=== PATIENT | male | born 1940 | race Caucasian/White ===

== ENCOUNTER 2018-01-04 00:28 | Emergency (ER) | payer MEDICARE, BC, SELFPAY ==
[2018-01-04 00:37] VITALS: BP 147/74; PULSE 50; RESP 16; TEMP 36.3; O2SAT 97; BMI 31.3
[2018-01-04 01:05] VITALS: BP 125/65
--- NOTE | 2018-01-04 01:05 | ED.EPISTAXIS ---
HPI - Epistaxis General Chief complaint: Nasal Problem Stated complaint: NOSEBLEED, ON BLOOD THINNERS Time Seen by Provider: 01/04/18 00:35 Source: patient and family Mode of arrival: ambulatory Limitations: no limitations History of Present Illness HPI Narrative: 77-year-old male with history of essential thrombocytopenia and stroke, on Plavix and aspirin, presents with spontaneous nose bleed x1 hour. He denies any injury, picking his nose or recent illness. He states he bled a fair amount at home but denies any chest pain, shortness of breath, dizziness or lightheadedness. His last nosebleed was over 20 years ago. MD complaint: epistaxis Location: left nostril Onset (ago): minute(s) Duration: constant Context: aspirin use Treatment prior to arrival: nose pinching, head leaned forward, stuffed nose with tissue and nasal clamp Related Data Home Medications Medication Instructions Recorded Confirmed clopidogrel [Plavix] 75 mg PO QDAY #0 tab 04/19/13 ezetimibe [Zetia] 10 mg PO QDAY #0 tab 04/19/13 fenofibrate nanocrystallized 145 mg PO HS #0 tab 04/19/13 [Tricor] ranitidine HCl [Zantac] 150 mg PO BID #0 tab 04/19/13 GLUCOSAMINE/CHONDROITIN SULF A 1 cap PO Q DAY #0 04/20/16 [COQ10] Q DAY #0 04/20/16 folic acid-vit B6-vit B12 [Folbic] 1 tab PO QDAY #0 tab 04/20/16 hydroxyurea [Hydrea] 500 mg PO BID #0 04/20/16 metoprolol tartrate 25 mg PO BID #0 04/20/16 nitroglycerin [Nitrostat] 0.4 mg SUBLINGUAL PRN #0 04/20/16 simvastatin 10 mg PO QDAY #0 04/20/16 triamterene-hydrochlorothiazid 1 tab PO Q DAY #0 04/20/16 icosapent ethyl [Vascepa] 1 gm PO QDAY #0 01/13/17 [zetia] #0 04/08/17 metronidazole [MetroCream] 1 kathy TOPICAL #0 04/08/17 sertraline [Zoloft] 50 mg PO QDAY #0 04/08/17 Allergies Allergy/AdvReac Type Severity Reaction Status Date / Time No Known Drug Allergies Allergy Verified 01/04/18 00:37 Review of Systems Review of Systems All systems reviewed & are unremarkable except as noted in HPI and below Constitutional Denies chills, Denies fever(s), Denies lethargy and Denies weakness Eyes Denies change in vision, Denies eye discharge, Denies irritation and Denies loss of vision ENT Ears, Nose, Mouth, and Throat: Denies change in voice, Reports epistaxis, Denies neck pain and Denies sore throat Cardiovascular Denies chest pain, Denies irregular heart rhythm, Denies lightheadedness, Denies palpitations, Denies dyspnea, Denies dyspnea on exertion and Denies orthopnea Respiratory Denies cough, Denies dyspnea, Denies dyspnea on exertion and Denies wheezing Gastrointestinal Gastrointestinal: Denies abdominal pain, Denies change in bowel habits, Denies diarrhea, Denies nausea and Denies vomiting Genitourinary Denies hematuria, Denies flank pain, Denies urinary incontinence and Denies urinary urgency Musculoskeletal Denies neck pain Integumentary/Breasts Denies pruritus, Denies erythema, Denies rash and Denies wounds Neurologic Denies confusion, Denies loss of vision and Denies weakness Psychiatric Denies anxiety, Denies confusion, Denies depression, Denies homicidal ideation and Denies suicidal ideation Endocrine Denies palpitations Hematologic/Lymphatic Denies easy bruising Allergic/Immunologic Denies wheezing PFSH Social History Smoking Status: Never smoker Exam Narrative Exam Narrative: 77M presents with active bleeding from L nostril and nose clamp in place Initial Vital Signs Initial Vital Signs: Vital Signs Temperature 97.3 F L 01/04/18 00:37 Pulse Rate 50 L 01/04/18 00:37 Respiratory Rate 16 01/04/18 00:37 Blood Pressure 147/74 H 01/04/18 00:37 Pulse Oximetry 97 01/04/18 00:37 Const General: cooperative and well developed Nutritional Appearance: well nourished Orientation: alert, awake, oriented x3 and not confused [facility] Head: normocephalic and atraumatic Ears: external ears normal and TM's normal bilaterally Nose: epistaxis (L nostril, bright red with large clot) Face and sinus: sinuses nontender, face symmetric, no sinus tenderness and No dry mucous membranes Mouth: oral mucosae normal and moist mucous membranes Teeth and gingiva: dentition normal Throat: tonsils normal and uvula midline Eyes General: appearance normal, both eyes and all related structures Eyelids: eyelids normal Conjunctivae: conjunctivae normal Sclera: sclerae normal Pupils: PERRL EOM: EOM intact bilaterally Resp Effort & Inspection: normal respiratory effort, able to speak in complete sentences, no respiratory distress and no use of accessory muscles Auscultation: clear to auscultation bilaterally, no rales, no rhonchi and no wheezes GI Inspection: non-distended Palpation: soft, no hepatosplenomegaly, No guarding, No pulsatile mass and No tender Auscultation: normal bowel sounds Back/Spine/Pelvis Back: No CVA tenderness Cervical Spine: cervical ROM normal and No pain with cervical ROM Thoracic/Lumbar Spine: thoracic and lumbar spine normal to inspection Neuro General: alert, oriented x3, gait normal and no focal motor deficits Speech: speech normal Procedures Epistaxis Control Time Out Performed: No Nostril: left Nose Prepped With: oxymetazoline Direct Inspection: yes Clots Removed by: blowing nose and suction Cautery Used: silver nitrate Device Inserted: other (Two rounds of Afrin with cotton ball and pressure for 15 min resulted in a near complete resolution of bleeding. Cautery seems to be holding. Third and final 15 min time frame with a pledget soaked in T aches a.) Course Orders Ordered: ED Orders 01/04/18 00:40 Complete Blood Count AUTO DIFF Stat Reevaluation(s) Reevaluation #1: After above-stated epistaxis control measures patient bleeding is under control. He has had extensive bedside discharge instructions and he and understand what to watch for that would prompt a return and verbalized their understanding. I did ask him to delay his travel plans for 24 hr to be sure he can gain appropriate rest in the sure no recurrence of symptoms happens Vital Signs - 8 hr 01/04/18 00:37 01/04/18 01:05 Temperature 97.3 F L Pulse Rate 50 L Respiratory Rate 16 Blood Pressure 147/74 H Blood Pressure [Left Arm] 125/65 H Pulse Oximetry 97 MDM - Epistaxis Lab Data Result diagrams: 01/04/18 00:40 Lab Results 01/04/18 Range/Units 00:40 WBC 10.4 (4.5-11.0) X10^3/uL RBC 3.83 L (4.5-5.9) X10^6/uL Hgb 14.7 (13.5-17.5) g/dL Hct 41.8 (41-53) % MCV 109.0 H (80-100) fL MCH 38.4 H (26-34) PG MCHC 35.3 (30-36) % RDW 13.3 (11.6-14.8) % Plt Count 228 (150-400) X10^3/uL Neut % (Auto) 65.9 (50-75) % Lymph % (Auto) 24.4 L (25-40) % [place] % (Auto) 8.2 (3-14) % Eos % (Auto) 1.0 L (2-4) % Baso % (Auto) 0.5 (0-2) % Neut # (Auto) 6800 H (4732-6869) /uL Discharge Plan Departure Patient Disposition: Home, Self-Care Clinical Impression: Epistaxis Instructions: DI for Nosebleed Activity Restrictions/Additional Instructions: *You have been diagnosed with [ epistaxis ] *What to do: *Continue take medications as directed *Do not blow your nose, or touch your nose for 24 hours. If bleeding begins again put a cotton ball in your nostril and squirt some Afrin in, apply the nose clamp and wait 15 minutes. If after that time frame the bleeding continues, repeat the process. If bleeding continues after 30 minutes please return to the Emergency Department *Return to ER immediately if you should have severe bleeding or any new, worsening or concerning symptoms Prescriptions: No Action clopidogrel [Plavix] 75 MG tablet 75 mg PO QDAY Qty: 0 RF: 0 ranitidine HCl [Zantac] 150 MG tablet 150 mg PO BID Qty: 0 RF: 0 ezetimibe [Zetia] 10 MG tablet 10 mg PO QDAY Qty: 0 RF: 0 fenofibrate nanocrystallized [Tricor] 145 MG tablet 145 mg PO HS Qty: 0 RF: 0 [COQ10] Q DAY Qty: 0 RF: 0 GLUCOSAMINE/CHONDROITIN SULF A 1 cap PO Q DAY Qty: 0 RF: 0 hydroxyurea [Hydrea] 500 MG capsule 500 mg PO BID Qty: 0 RF: 0 metoprolol tartrate 25 MG tablet 25 mg PO BID Qty: 0 RF: 0 simvastatin 10 MG tablet 10 mg PO QDAY Qty: 0 RF: 0 nitroglycerin [Nitrostat] 0.4 MG tablet, sublingual 0.4 mg Sublingual PRNQty: 0 RF: 0 triamterene-hydrochlorothiazid 37.5 MG/25 MG tablet 1 tab PO Q DAY Qty: 0 RF: 0 folic acid-vit B6-vit B12 [Folbic] 1 EACH tablet 1 tab PO QDAY Qty: 0 RF: 0 icosapent ethyl [Vascepa] 1 GM capsule 1 gm PO QDAY Qty: 0 RF: 0 metronidazole [MetroCream] 0.75 % cream 1 kathy Topical Qty: 0 RF: 0 sertraline [Zoloft] 50 MG tablet 50 mg PO QDAY Qty: 0 RF: 0 [zetia] Qty: 0 RF: 0 Referrals: Josh Zaragoza MD [Physician] -
[2018-01-04 01:15] LABS: Add Manual Diff / Slide Review NO; Basophils Percent Auto 0.5 % (0-2); Hematocrit 41.8 % (41-53); Hemoglobin 14.7 g/dL (13.5-17.5); Lymphocytes Percent Auto 24.4 % (25-40); Mean Corpuscular HGB Conc 35.3 % (30-36); Mean Corpuscular Hemoglobin 38.4 PG (26-34); Monocytes Percent Auto 8.2 % (3-14); Neutrophils Absolute Auto 6800 /uL (3000-5900); Neutrophils Percent Auto 65.9 % (50-75); Platelet Count 228 X10^3/uL (150-400); Red Blood Cell Count 3.83 X10^6/uL (4.5-5.9); Red Cell Distribution Width 13.3 % (11.6-14.8); White Blood Cell Count 10.4 X10^3/uL (4.5-11.0)
[2018-01-04 02:00] VITALS: BP 120/59; PULSE 46
== END 2018-01-04 02:30 | disposition home or self-care (01) ==
PROVIDERS: Emergency Provider Emergency Medicine; Family Provider Internal Medicine; PCP Internal Medicine
DX: R04.0 Epistaxis (principal)
CPT/HCPCS: 30901; 36591; 85025; 99282; 99283

== ENCOUNTER → 2018-03-01 15:34 | Outpatient (CLI) | payer MEDICARE, BC, SELFPAY ==
[2017-11-29 14:00] VITALS: TEMP 36.2
[2018-03-01 15:55] LABS: Add Manual Diff / Slide Review NO; Basophils Percent Auto 0.5 % (0-2); Eosinophils Percent Auto 0.7 % (2-4); Hematocrit 40.5 % (41-53); Hemoglobin 14.5 g/dL (13.5-17.5); Mean Corpuscular HGB Conc 35.9 % (30-36); Mean Corpuscular Hemoglobin 38.4 PG (26-34); Monocytes Percent Auto 6.6 % (3-14); Neutrophils Absolute Auto 7300 /uL (3000-5900); Neutrophils Percent Auto 75.2 % (50-75); Platelet Count 234 X10^3/uL (150-400); Red Blood Cell Count 3.79 X10^6/uL (4.5-5.9); White Blood Cell Count 9.8 X10^3/uL (4.5-11.0)
== END ==
PROVIDERS: Family Provider Internal Medicine; PCP Internal Medicine; Visit Provider Internal Medicine Hematology & Oncology
DX: D47.3 Essential (hemorrhagic) thrombocythemia (principal)
CPT/HCPCS: 36415; 85025

== ENCOUNTER → 2018-05-11 15:32 | Outpatient (CLI) | payer MEDICARE, BC, SELFPAY ==
[2017-11-29 14:00] VITALS: TEMP 36.4
[2018-05-11 16:04] LABS: Add Manual Diff / Slide Review NO; Basophils Percent Auto 0.5 % (0-2); Eosinophils Percent Auto 0.8 % (2-4); Hematocrit 41.1 % (41-53); Hemoglobin 14.3 g/dL (13.5-17.5); Lymphocytes Percent Auto 19.1 % (25-40); Mean Corpuscular HGB Conc 34.9 % (30-36); Mean Corpuscular Hemoglobin 38.2 PG (26-34); Mean Corpuscular Volume 109.4 fL (80-100); Monocytes Percent Auto 8.2 % (3-14); Neutrophils Absolute Auto 7300 /uL (3000-5900); Neutrophils Percent Auto 71.4 % (50-75); Platelet Count 223 X10^3/uL (150-400); Red Blood Cell Count 3.76 X10^6/uL (4.5-5.9); Red Cell Distribution Width 14.2 % (11.6-14.8); White Blood Cell Count 10.3 X10^3/uL (4.5-11.0)
== END ==
PROVIDERS: Family Provider Internal Medicine; PCP Internal Medicine; Visit Provider Internal Medicine Hematology & Oncology
DX: D47.3 Essential (hemorrhagic) thrombocythemia (principal)
CPT/HCPCS: 36415; 85025

== ENCOUNTER → 2018-11-06 16:05 | Outpatient (CLI) | payer MEDICARE, BC, SELFPAY ==
[2018-11-06 16:37] LABS: Add Manual Diff / Slide Review NO; Basophils Absolute Auto 100 /uL (0-100); Basophils Percent Auto 0.7 % (0-2); Eosinophils Absolute Auto 100 /uL (0-450); Eosinophils Percent Auto 0.6 % (2-4); Hematocrit 40.6 % (41-53); Hemoglobin 14.6 g/dL (13.5-17.5); Lymphocytes Absolute Auto 2100 /uL (1100-4500); Lymphocytes Percent Auto 22.8 % (25-40); Mean Corpuscular Hemoglobin 37.4 PG (26-34); Mean Corpuscular Volume 103.8 fL (80-100); Monocytes Absolute Auto 700 /uL (0-900); Monocytes Percent Auto 8.1 % (3-14); Neutrophils Absolute Auto 6200 /uL (1500-7000); Neutrophils Percent Auto 67.8 % (50-75); Platelet Count 212 X10^3/uL (150-400); Red Blood Cell Count 3.91 X10^6/uL (4.5-5.9); Red Cell Distribution Width 15.3 % (11.6-14.8); White Blood Cell Count 9.2 X10^3/uL (4.5-11.0)
== END ==
PROVIDERS: Family Provider Internal Medicine; PCP Internal Medicine
DX: D47.3 Essential (hemorrhagic) thrombocythemia (principal)
CPT/HCPCS: 36415; 85025

== ENCOUNTER → 2019-03-16 13:56 | Oncology outpatient (ONC) | payer MEDICARE, BC, SELFPAY ==
[2018-11-28 15:03] VITALS: BP 130/71; PULSE 53; RESP 18; TEMP 37.3; O2SAT 97
--- NOTE | 2018-11-28 15:20 | P.PNONC_ITS ---
PN -Subjective Interval history: Diagnosis: Essential thrombocytosis, CALR positive. Previous treatment: Hydrea. He is currently on 500 mg daily Interval history: The patient is a 78-year-old man who returns today for follow-up. He has a history of essential thrombocytosis. He has been on Hydrea 500 mg a day and tolerating it well. He denies any nausea or vomiting fee. No fevers chills or sweats. No shortness of breath or cough. No GI complaints. He has not had any unusual bleeding but has had occasional bruising on his arms. He denies any other changes in his health. Home Medications and Allergies Home Medications Medication Instructions Recorded Confirmed Type clopidogrel [Plavix] 75 mg PO QDAY #0 tab 04/19/13 05/16/18 History ezetimibe [Zetia] 10 mg PO QDAY #0 tab 04/19/13 05/16/18 History fenofibrate nanocrystallized 145 mg PO HS #0 tab 04/19/13 05/16/18 History [Tricor] ranitidine HCl [Zantac] 150 mg PO BID #0 tab 04/19/13 05/16/18 History Folbic 1 tab PO QDAY #0 tab 04/20/16 05/16/18 History GLUCOSAMINE/CHONDROITIN SULF A 1 cap PO Q DAY #0 04/20/16 05/16/18 History [COQ10] Q DAY #0 04/20/16 History hydroxyurea [Hydrea] 500 mg PO BID #0 04/20/16 05/16/18 History metoprolol tartrate 25 mg PO BID #0 04/20/16 05/16/18 History nitroglycerin [Nitrostat] 0.4 mg SUBLINGUAL PRN PRN #0 04/20/16 05/16/18 History simvastatin 10 mg PO QDAY #0 04/20/16 05/16/18 History triamterene-hydrochlorothiazid 1 tab PO Q DAY #0 04/20/16 05/16/18 History Vascepa 1 gm PO QDAY #0 01/13/17 05/16/18 History [zetia] #0 04/08/17 History metronidazole [MetroCream] 1 kathy TOPICAL DAILY #0 04/08/17 05/16/18 History sertraline [Zoloft] 50 mg PO QDAY #0 04/08/17 05/16/18 History Allergies Allergy/AdvReac Type Severity Reaction Status Date / Time No Known Drug Allergies Allergy Verified 01/04/18 00:37 Exam Vital signs: Vital Signs Temp Pulse Resp BP Pulse Ox 11/28/18 15:03 99.2 F 53 L 18 130/71 97 Intake and Output 11/27/18 11/28/18 11/28/18 23:59 07:59 15:59 Other: Weight 98.7 kg Patient Weight 11/28/18 23:59 Weight 98.7 kg - Constitutional positive no acute distress, positive average body habitus - Routine HEENT Exam Head: Present: normocephalic, atraumatic Eye: Present: EOMI, PERRL. Absent: conjunctival icterus, scleral injection ENT: Present: mucous membranes moist, oropharynx clear - Routine Neck Exam Present: supple. Absent: lymphadenopathy, thyromegaly - Routine Respiratory Exam Present: Clear to auscultation bilaterally. Absent: rales, wheezes - Routine Abdominal Exam Present: soft, normoactive bowel sounds. Absent: tenderness, organomegaly, mass - Routine Extremities Exam Absent: cyanosis, clubbing, edema - Routine Back/Spine Exam Back/Spine: Absent: vertebral tenderness - Routine Skin Exam Present: intact. Absent: petechiae, rash Comments: He has a few small fading ecchymoses on his left arm. - Routine Neurological Exam Present: alert, oriented X3 - Routine Psychiatric Exam Present: normal affect, normal thought process Results - Imaging Additional studies: Procedures Insertion of intraocular lens prosthesis at time of cataract extraction, one- stage (12/09/10) Phacoemulsification and aspiration of cataract (12/09/10) Assessment and Plan (1) Essential (hemorrhagic) thrombocythemia Problem details: 78-year-old man with essential thrombocytosis. He has the is no documented history of venous thrombosis but has had prior TIAs and stroke. He has had good control of his counts with Hydrea and will continue on his current dose. He will continue with his current regimen and return to clinic in 1 year for follow-up. He will check a CBC about every 3 months. Current visit: No Status: Acute
[2019-03-16 14:26] LABS: Add Manual Diff / Slide Review NO; Basophils Absolute Auto 100 /uL (0-100); Basophils Percent Auto 0.5 % (0-2); Eosinophils Absolute Auto 100 /uL (0-450); Eosinophils Percent Auto 0.8 % (2-4); Hematocrit 41.7 % (41-53); Lymphocytes Absolute Auto 2000 /uL (1100-4500); Lymphocytes Percent Auto 20.1 % (25-40); Mean Corpuscular Hemoglobin 38.8 PG (26-34); Mean Corpuscular Volume 107.8 fL (80-100); Monocytes Absolute Auto 700 /uL (0-900); Monocytes Percent Auto 7.1 % (3-14); Neutrophils Absolute Auto 7200 /uL (1500-7000); Neutrophils Percent Auto 71.5 % (50-75); Platelet Count 211 X10^3/uL (150-400); Red Blood Cell Count 3.86 X10^6/uL (4.5-5.9); Red Cell Distribution Width 13.3 % (11.6-14.8); White Blood Cell Count 10.1 X10^3/uL (4.5-11.0)
== END ==
PROVIDERS: Family Provider Internal Medicine; PCP Internal Medicine
DX: D47.3 Essential (hemorrhagic) thrombocythemia (principal)
CPT/HCPCS: 36415; 85025; 99214

== ENCOUNTER → 2019-04-04 10:01 | Outpatient (CLI) | payer MEDICARE, BC, SELFPAY ==
[2019-04-04 11:06] LABS: Add Manual Diff / Slide Review NO; Basophils Absolute Auto 100 /uL (0-100); Basophils Percent Auto 0.7 % (0-2); Eosinophils Absolute Auto 100 /uL (0-450); Eosinophils Percent Auto 0.7 % (2-4); Hematocrit 40.6 % (41-53); Hemoglobin 14.7 g/dL (13.5-17.5); Lymphocytes Absolute Auto 1800 /uL (1100-4500); Lymphocytes Percent Auto 18.5 % (25-40); Mean Corpuscular HGB Conc 36.2 % (30-36); Mean Corpuscular Volume 107.5 fL (80-100); Monocytes Absolute Auto 500 /uL (0-900); Monocytes Percent Auto 4.9 % (3-14); Neutrophils Absolute Auto 7400 /uL (1500-7000); Neutrophils Percent Auto 75.2 % (50-75); Platelet Count 209 X10^3/uL (150-400); Red Blood Cell Count 3.78 X10^6/uL (4.5-5.9); Red Cell Distribution Width 13.4 % (11.6-14.8); White Blood Cell Count 9.8 X10^3/uL (4.5-11.0)
[2019-04-04 11:12] LABS: Alanine Aminotransferase 25 IU/L (21-72); Aspartate Aminotransferase 30 IU/L (17-59); Blood Urea Nitrogen 18 mg/dL (9-20); Carbon Dioxide 30 mmol/L (22-32); Chloride 101 mmol/L (98-107); Cholesterol 129 mg/dL (140-199); Estimated Glomerular Filt Rate > 60.0 mL/min (>60); Glucose 98 mg/dL (80-110); HDL Cholesterol 38 mg/dL (40-60); HEMOLYSIS < 15 (0-50); LDL Cholesterol Calculated 53 mg/dL (<100); Potassium 4.1 mmol/L (3.4-5.1); Sodium 140 mmol/L (137-145); Triglycerides 189 mg/dL (35-150)
[2019-04-04 12:04] LABS: Vitamin B12 719 pg/mL (239-931)
== END ==
PROVIDERS: PCP Internal Medicine; Visit Provider Internal Medicine
DX: I25.10 Atherosclerotic heart disease of native coronary artery without angina pectoris (principal); B35.1 Tinea unguium; D47.3 Essential (hemorrhagic) thrombocythemia; I10 Essential (primary) hypertension; R41.3 Other amnesia; E78.00 Pure hypercholesterolemia, unspecified
CPT/HCPCS: 36415; 80048; 80061; 82607; 84443; 84450; 84460; 85025

== ENCOUNTER → 2019-05-24 13:51 | Outpatient (CLI) | payer MEDICARE, BC, SELFPAY ==
--- NOTE | 2019-05-24 | DI.NM.S_ITS ---
PROCEDURE: NM SID PERF SPECT R&S PHARM Rest and pharmacological stress myocardial perfusion SPECT with gated imaging and ejection fraction RADIOPHARMACEUTICAL: 24.5 mCi Tc-99m tetrafosmin IV at rest and 24.5 mCi Tc-99m tetrafosmin IV at peak effect of pharmacological stress. [id number] was performed. INDICATIONS: I25.10, CAD TECHNIQUE: Radiopharmaceutical was injected at peak stress test, and also at rest. SPECT images were obtained. SPECT myocardial perfusion images were displayed in short axis, horizontal long axis, and vertical long axis views. Gated images were reviewed using [employer] software. COMPARISON: None. CARDIAC STRESS: A pharmacologic stress test was performed under the supervision of an attending staff, using an infusion of lexiscan 0.4mg IV X1. Hemodynamic data: There is normal blood pressure and heart rate response to pharmacologic stress. Symptoms: The patient denied anginal chest pain. Aminophylline: none EKG: Resting ECG shows sinus bradycardia. No diagnostic changes of ischemia with lexiscan; no ectopy. FINDINGS: Raw data: There is good myocardial uptake of radiotracer. No significant motion artifacts. [id number] ratio is 0.39 (normal is less than 0.38 for tetrafosmin tracer). Left ventricle function: Gated images demonstrate severe hypokinesis of the basal to mid inferior wall at stress but not at rest, suggesting possible myocardial stunning with stress test. No transient ischemic dilation; TID is 0.99 (normal less than 1.3). Left ventricle resting end diastolic volume is 136 mL. Left ventricle stress ejection fraction is 65%; normal range is above 45%. Myocardial perfusion: There is moderately severe reversible defect in the inferior wall and extending to the apex and inferolateral wall suggestive of ischemia. No significant infarction noted visually. SSS 10, SRS 3. Prone images are not much different than supine images. IMPRESSION: Abnormal pharmaceutical nuclear stress test, concerning for ischemia. 1) There is moderately severe reversible defect in the inferior wall and extending to the apex and inferolateral wall suggestive of ischemia. No significant infarction noted visually. SSS 10, SRS 3. Prone images are not much different than supine images. 2) Normal left ventricular size and systolic function (EF post stress 65%). Severe hypokinesis of the basal to mid inferior wall at stress but not at rest, suggesting possible myocardial stunning with stress test. 3) No ECG evidence of ischemia. 4) No angina during the study. 5) No prior nuclear stress test available for comparison. Dictated by: Elisabeth Grissom MD on 05/25/2019 at 12:35 Approved by: Elisabeth Grissom MD on 05/25/2019 at 12:40
--- NOTE | 2019-05-24 14:47 | PM.TREADMILL ---
Cardiac Stress Test Report Referral & Results Date Patient Seen: 05/24/19 Requesting provider: Chas Otero Indication: Coronary disease Rest ECG: Unremarkable except for resting bradycardia despite having held his metoprolol (heart rate was 46) Procedure Note: After both written and verbal informed consent the patient had an IV started by the diagnostic imaging RN, and then was hooked up to the treadmill monitoring system. The Lexiscan material, and then the Cardiolite tracer, were administered sequentially. An additional 3 min was spent monitoring the patient while supine on the gurney. The patient had a normal response to all infused materials. Impression: See perfusion imaging report for details regarding possible ischemia Please note: Actual ECG tracings can be found in the PACS system.
== END ==
PROVIDERS: PCP Internal Medicine; Visit Provider Internal Medicine
DX: I25.10 Atherosclerotic heart disease of native coronary artery without angina pectoris (principal); R00.1 Bradycardia, unspecified
CPT/HCPCS: 78452; 93016; 93017; 93018; A9502; J2785

== ENCOUNTER → 2019-10-09 13:20 | Outpatient (CLI) | payer MEDICARE, BC, SELFPAY ==
--- NOTE | 2019-10-09 | DI.RAD.S_ITS ---
PROCEDURE: XR ABDOMEN MIN 2V INDICATIONS: LOW ABDOMINAL PAIN AND CONSTIPATION TECHNIQUE: 2 views of the abdomen were acquired. COMPARISON: None. FINDINGS: Surgical changes and devices: Sternotomy wires right upper quadrant surgical clips.. Bowel: No pneumoperitoneum. The bowel gas pattern is normal. Mild stool Soft tissues: No masses; visualized solid organ contours appear normal in size. No suspicious abdominal calcifications. Splenic artery calcifications. Bones: No suspicious bony abnormalities. IMPRESSION: No specific evidence of bowel obstruction seen at this time although if the patient's symptoms do not improve, continued surveillance with abdominal series radiographs could be performed. Dictated by: Matthew Jimenez M.D. on 10/09/2019 at 14:11 Approved by: Matthew Jimenez M.D. on 10/09/2019 at 14:14
== END ==
PROVIDERS: PCP Internal Medicine; Referring Provider Internal Medicine; Visit Provider Internal Medicine
DX: R10.30 Lower abdominal pain, unspecified (principal); K59.00 Constipation, unspecified
CPT/HCPCS: 74019

== ENCOUNTER → 2019-10-10 14:59 | Outpatient (CLI) | payer MEDICARE, BC, SELFPAY ==
[2019-10-10 16:35] LABS: Add Manual Diff / Slide Review NO; Basophils Absolute Auto 0 /uL (0-100); Basophils Percent Auto 0.3 % (0-2); Eosinophils Absolute Auto 0 /uL (0-450); Eosinophils Percent Auto 0.5 % (2-4); Hematocrit 38.6 % (41-53); Hemoglobin 13.5 g/dL (13.5-17.5); Lymphocytes Absolute Auto 1200 /uL (1100-4500); Lymphocytes Percent Auto 11.1 % (25-40); Mean Corpuscular HGB Conc 34.9 % (30-36); Mean Corpuscular Hemoglobin 36.3 PG (26-34); Monocytes Absolute Auto 1000 /uL (0-900); Monocytes Percent Auto 9.3 % (3-14); Neutrophils Absolute Auto 8200 /uL (1500-7000); Neutrophils Percent Auto 78.8 % (50-75); Platelet Count 310 X10^3/uL (150-400); Red Blood Cell Count 3.71 X10^6/uL (4.5-5.9); Red Cell Distribution Width 15.3 % (11.6-14.8); White Blood Cell Count 10.4 X10^3/uL (4.5-11.0)
[2019-10-10 16:41] LABS: Alanine Aminotransferase 14 IU/L (<50); Albumin 3.7 g/dL (3.5-5.0); Albumin Globulin Ratio 1.4 (1.0-2.8); Alkaline Phosphatase 69 U/L (38-126); Aspartate Aminotransferase 21 IU/L (17-59); BUN Creatinine Ratio 19.3 (6-22); Bilirubin Total 0.6 mg/dL (0.2-1.3); Blood Urea Nitrogen 16 mg/dL (9-20); Calcium 8.9 mg/dL (8.4-10.2); Carbon Dioxide 30 mmol/L (22-32); Chloride 101 mmol/L (98-107); Estimated Glomerular Filt Rate > 60.0 mL/min (>60); Globulin 2.6 g/dL (1.7-4.1); Glucose 113 mg/dL (80-110); HEMOLYSIS < 15 (0-50); Lipase 222 U/L (23-300); Potassium 3.8 mmol/L (3.4-5.1); Sodium 139 mmol/L (137-145); Total Protein 6.3 g/dL (6.3-8.2)
[2019-10-10 17:07] LABS: TSH w/ Reflex to FT4 6.11 uIU/mL (0.47-4.68)
[2019-10-10 20:00] LABS: Free T4, Direct Thyroxine 1.47 ng/dL (0.78-2.19)
[2019-10-11 17:00] LABS: Add Manual Diff / Slide Review NO; Basophils Absolute Auto 100 /uL (0-100); Basophils Percent Auto 0.5 % (0-2); Eosinophils Absolute Auto 100 /uL (0-450); Eosinophils Percent Auto 0.8 % (2-4); Hematocrit 36.1 % (41-53); Hemoglobin 12.5 g/dL (13.5-17.5); Lymphocytes Absolute Auto 1300 /uL (1100-4500); Mean Corpuscular HGB Conc 34.5 % (30-36); Mean Corpuscular Hemoglobin 35.7 PG (26-34); Mean Corpuscular Volume 103.4 fL (80-100); Monocytes Absolute Auto 1200 /uL (0-900); Monocytes Percent Auto 10.1 % (3-14); Neutrophils Absolute Auto 9200 /uL (1500-7000); Neutrophils Percent Auto 77.6 % (50-75); Platelet Count 296 X10^3/uL (150-400); Red Blood Cell Count 3.49 X10^6/uL (4.5-5.9); Red Cell Distribution Width 15.4 % (11.6-14.8); White Blood Cell Count 11.9 X10^3/uL (4.5-11.0)
== END ==
PROVIDERS: Internal Medicine; PCP Internal Medicine; Referring Provider Internal Medicine; Visit Provider Internal Medicine
DX: R10.30 Lower abdominal pain, unspecified (principal); K59.00 Constipation, unspecified; R10.32 Left lower quadrant pain
CPT/HCPCS: 36415; 80053; 83690; 84439; 84443; 85025

== ENCOUNTER → 2019-10-11 14:25 | Outpatient (CLI) | payer MEDICARE, BC, SELFPAY ==
--- NOTE | 2019-10-11 | DI.CT.S_ITS ---
PROCEDURE: CT ABDOMEN PELVIS W CON INDICATIONS: 20 WEEK ANATOMICAL SURVEY TECHNIQUE: After the administration of oral and intravenous contrast, 5 mm thick sections acquired from the diaphragms to the symphysis. 5 mm thick coronal and sagittal reformats were performed. For radiation dose reduction, the following was used: automated exposure control, adjustment of mA and/or kV according to patient size. COMPARISON: None. FINDINGS: Image quality: Excellent. ABDOMEN: Lung bases: Bibasilar scarring/atelectasis is seen. Heart size is enlarged, no pericardial effusion. Median sternotomy wires are seen. Solid organs: Liver is normal in size and enhancement. Small to moderate amount of free fluid adjacent to right lobe of liver is seen. Tiny hypodensity is seen in left lobe of liver and measures 5-6 mm in size and is too small to characterize. No other discrete hepatic lesion is noted. Gallbladder is surgically absent. Biliary system is non-dilated. Pancreas enhances normally. Spleen is enlarged in size and measures up to 15 cm in length. Tiny hypodensities are seen scattered in splenic parenchyma measures up to 6 mm in size and likely represent tiny cysts. No adrenal nodules. Kidneys are normal in size and enhancement, without hydronephrosis. 3.4 x 2.4 cm cyst is seen in midpole of left kidney. 2.9 x 2.2 cm cyst is seen in lower pole of right kidney. Peritoneum and bowel: There is no evidence of bowel obstruction. No gross small bowel wall thickening is seen. There is wall thickening involving colon loops particularly involving transverse, descending and sigmoid colon loops with narrowing of the lumen suggestive of colitis. Underlying colonic mass cannot be entirely excluded. Moderate amount of abdominal and pelvic free fluid is seen. No gross peritoneal free air. Nodes and vessels: There is omental cake an ill-defined peritoneal soft tissue nodules seen scattered in the mid to lower abdomen mesentery and measures up to 2.9 x 4 cm in size in right lower quadrant just inferior to the lower edge of liver suggestive of peritoneal metastatic disease. No gross enlarged mesenteric lymph nodes are seen. No gross retroperitoneal lymphadenopathy. Aorta and inferior vena cava are normal in caliber. Miscellaneous: No ventral hernias. PELVIS: Genitourinary: Mild diffuse bladder wall thickening is seen, and no definite bladder wall mass. Enlarged prostate gland with significant mass effect of floor of urinary bladder is noted. Miscellaneous: No inguinal hernias or adenopathy. Bones: No suspicious bony lesions. No vertebral body compression fractures. IMPRESSION: 1. Moderate amount of ascites fluid in abdomen or pelvis with peritoneal soft tissue density lesions and omental cake consistent with extensive peritoneal metastatic disease. No peritoneal free air is seen. 2. Transverse, descending and sigmoid colon wall thickening with narrowing of the lumen suggestive of infectious inflammatory colitis. Underlying colonic wall mass cannot be excluded, suggest clinical and possible endoscopic correlation. 3. Splenomegaly, suggestion of tiny hepatic and splenic cysts. 4. Bilateral renal cysts. No hydronephrosis. 5. Enlarged prostate gland with mass effect of floor of urinary bladder. Mild diffuse bladder wall thickening. Dictated by: Wiley Laboy M.D. on 10/11/2019 at 15:56 Approved by: Wiley Laboy M.D. on 10/11/2019 at 16:21
[2019-10-11 16:28] LABS: Bacteria Urine None Seen
[2019-10-11 17:10] LABS: Appearance Urine UA CLEAR; Bilirubin Urine UA NEGATIVE (NEGATIVE); Color Urine UA YELLOW; Glucose Urine UA NEGATIVE (Negative); Ketones Urine UA NEGATIVE (NEGATIVE); Leukocyte Esterase Urine UA NEGATIVE (NEGATIVE); Nitrite Urine UA NEGATIVE (Negative); Occult Blood Urine UA TRACE-LYSED (Negative); Protein Urine UA NEGATIVE (Negative); Urobilinogen Urine UA 0.2 E.U./dL (0.2); pH Urine UA 6.5 (4.5-8.0)
[2019-10-11 18:13] LABS: Culture Indicated Urine Cult Not Indicated; RBC Urine 0-1/HPF (0-5/HPF); WBC Urine 0-1/HPF (0-5/HPF)
== END ==
PROVIDERS: PCP Internal Medicine; Referring Provider Internal Medicine; Visit Provider Internal Medicine
DX: R10.32 Left lower quadrant pain (principal); R18.8 Other ascites; R16.1 Splenomegaly, not elsewhere classified; N28.1 Cyst of kidney, acquired; N40.0 Benign prostatic hyperplasia without lower urinary tract symptoms
CPT/HCPCS: 74177; 81001; Q9967

== ENCOUNTER 2019-10-23 08:57 | Day surgery (SDC) | payer MEDICARE, BC, SELFPAY ==
[2019-10-23] VITALS (7 sets, daily range): BP systolic 104–126; BP diastolic 65–80; PULSE 61–74; RESP 16–23; TEMP 36.7–37.1; O2SAT 94–96; BMI 29.7
[2019-10-23] MEDS: LACTATED RINGERS 1,000 ML 200 ML IV (10:07)
--- NOTE | 2019-10-23 10:34 | PM.HP.1 ---
History of Present Illness History of Present Illness Date Patient Seen: 10/23/19 Time Patient Seen: 10:35 Chief complaint: [id number] Narrative: Gold is a 79-year-old man who is referred for colonoscopy for presumed colon cancer. He has been having abdominal pain left lower quadrant subsequently underwent a CT abdomen pelvis which demonstrates a colonic mass in addition to ascites and omental caking. No history prior intestinal malignancies or family history of colon cancer. He has been having diarrhea for the past 2 months. Patient History Surgical History History of appendectomy (Acute) Family & Social History Social History: household members spouse Tobacco & Substance use: Smoking Status Never smoker alcohol intake former Substance Use Type does not use Meds Home Medications and Allergies Home Medications Medication Instructions Recorded Confirmed Type clopidogrel [Plavix] 75 mg PO QDAY #0 tab 04/19/13 10/23/19 History ezetimibe [Zetia] 10 mg PO QDAY #0 tab 04/19/13 05/16/18 History fenofibrate nanocrystallized 145 mg PO HS #0 tab 04/19/13 05/16/18 History [Tricor] ranitidine HCl [Zantac] 150 mg PO BID #0 tab 04/19/13 05/16/18 History Folbic 1 tab PO QDAY #0 tab 04/20/16 05/16/18 History GLUCOSAMINE/CHONDROITIN SULF A 1 cap PO Q DAY #0 04/20/16 05/16/18 History [COQ10] Q DAY #0 04/20/16 History hydroxyurea [Hydrea] 500 mg PO BID #0 04/20/16 05/16/18 History metoprolol tartrate 25 mg PO BID #0 04/20/16 05/16/18 History nitroglycerin [Nitrostat] 0.4 mg SUBLINGUAL PRN PRN #0 04/20/16 05/16/18 History simvastatin 10 mg PO QDAY #0 04/20/16 05/16/18 History triamterene-hydrochlorothiazid 1 tab PO Q DAY #0 04/20/16 05/16/18 History Vascepa 1 gm PO QDAY #0 01/13/17 05/16/18 History [zetia] #0 04/08/17 History metronidazole [MetroCream] 1 kathy TOPICAL DAILY #0 04/08/17 05/16/18 History sertraline [Zoloft] 50 mg PO QDAY #0 04/08/17 05/16/18 History sodium,potassium,mag sulfates 17.5 177 ml PO DAILY #354 ml 10/17/19 Rx gram-3.13 gram-1.6 gram oral soln Allergies Allergy/AdvReac Type Severity Reaction Status Date / Time No Known Drug Allergies Allergy Verified 01/04/18 00:37 Review of Systems Review of Systems Narrative: A 10 point review of systems is negative except as noted in the HPI Exam Vital Signs (past 8 hours): - 10/23/19 09:47 Temperature 98.1 F Pulse Rate 74 Respiratory Rate 16 Blood Pressure 126/80 Pulse Oximetry 96 Oxygen Delivery Method Room Air Narrative Exam Narrative: General-no acute distress, well nourished HEENT-moist mucous membranes, no scleral icterus Neck-supple, no lymphadenopathy Chest- non labored respirations, clear to auscultation bilaterally Cardiac-regular rate no peripheral edema Abdomen-mildly tender left lower quadrant. Well-healed appendectomy incision Extremities-warm, well perfused Neurological-alert and oriented, no focal deficits Assessment & Plan Assessment and plan (1) Mass of colon: Current visit: Yes Status: Acute Assessment & Plan narrative: Gold is a 79-year-old man with likely metastatic colon cancer here for colonoscopy. Is a colonic mass on imaging in addition to ascites and omental caking. We discussed the technical nature of the procedure including its risks of bleeding infection colonic perforation missed diagnosis. His questions have been answered he is in agreement with this plan.
[2019-10-23] MEDS: fentaNYL 250 MCG/5 ML INJ IV (10:42)
[2019-10-23] MEDS: MIDAZOLAM 5 MG/5 ML VIAL IV (10:43)
--- NOTE | 2019-10-23 11:17 | PM.OP.ENDO ---
Operative Date/Time/Diagnoses Date of procedure: 10/23/19 Time of procedure: 11:17 Pre-op diagnosis: colon cancer Post-op diagnosis: same Procedure & Clinicians Study performed: aborted colonoscopy Same procedure as scheduled: Yes Indications: colonic thickening, ascities, omental caking Surgeon: Maykel Moody Procedure Notes SCOAP/Timeout: performed Procedure in detail: Patient placed in left lateral decubitus position. Time out was performed. Procedural sedation was administered with Versed and Fentanyl. A rectal exam demonstrated no external hemorrhoids no internal masses. Colonoscopy scope was placed into the rectum and advanced through the colon. The quality of the preparation was extremely poor. I was able to reach the splenic flexure but despite nancy 2 L of irrigation I was unable to visualize adequatley and proceed safely. the colonoscopy was then aborted. Sedation minutes: 32 Specimen(s): none sent Complications: none Impression: adequate prepartation Post-procedure Plan for aftercare: will attempt to reprep and perform within the week Disposition: same day surgery
--- NOTE | 2019-10-23 11:39 | SUR.PHASEI ---
Stable PACU stay.
--- NOTE | 2019-10-23 12:15 | SUR.PHASEII ---
Pt awaiting Dr. Moody to speak to .
--- NOTE | 2019-10-23 12:53 | SUR.PHASEII ---
Pt dressed with assist and transported from unit via w/c. Dr. Moody on the phone with at front entrance, questions and d/c instructions answered/explained. Pt left hospital when ready and in stable condition.
== END 2019-10-23 12:40 | disposition home or self-care (01) ==
PROVIDERS: PCP Internal Medicine; Referring Provider Surgery; Visit Provider Surgery
PROC: 0DJD8ZZ Inspection of Lower Intestinal Tract, Via Natural or Artificial Opening Endoscopic (ICD-10-PCS; CPT 45378; principal; 2019-10-23 10:00)
DX: R93.3 Abnormal findings on diagnostic imaging of other parts of digestive tract (principal); R10.32 Left lower quadrant pain; R19.7 Diarrhea, unspecified; Z53.09 Procedure and treatment not carried out because of other contraindication
CPT/HCPCS: 45378; 99152; 99153; J2250; J3010

== ENCOUNTER → 2019-10-25 15:01 | Outpatient (CLI) | payer MEDICARE, BC, SELFPAY ==
--- NOTE | 2019-10-25 15:03 | DI.CT.S_ITS ---
PROCEDURE: CT HEAD/BRAIN WO/W CON INDICATIONS: Confusion, new ascities and omental caking TECHNIQUE: 4.5 mm thick angled axial sections acquired from the foramen magnum to the vertex both before and after the administration of intravenous contrast, with coronal and sagittal reformats. For radiation dose reduction, the following was used: automated exposure control, adjustment of mA and/or kV according to patient size. COMPARISON: [facility], CT, CT ABDOMEN PELVIS W CON, 10/11/2019, 15:11. FINDINGS: Image quality: Excellent. CSF spaces: Basal cisterns are patent. No extra-axial fluid collections. Ventricles are symmetric in size and shape. 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 No midline shift. No intracranial bleeds or masses. No abnormal intracranial enhancement. There is cerebral volume loss for age. There is mild periventricular white matter chronic small vessel ischemic change. There is intracranial internal carotid artery atherosclerosis. Skull and face: Calvarium and visualized facial bones appear intact, without suspicious lesions. Sinuses: Visualized sinuses and mastoids are clear. IMPRESSION: 1. No acute intracranial abnormalities. 2. 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 3. Cerebral volume loss and chronic microvascular ischemic changes. Dictated by: Destin Caceres M.D. on 10/25/2019 at 15:49 Approved by: Destin Caceres M.D. on 10/25/2019 at 15:54
[2019-10-25 16:27] LABS: Add Manual Diff / Slide Review NO; Basophils Absolute Auto 0 /uL (0-100); Basophils Percent Auto 0.3 % (0-2); Eosinophils Absolute Auto 0 /uL (0-450); Eosinophils Percent Auto 0.1 % (2-4); Hemoglobin 12.8 g/dL (13.5-17.5); Lymphocytes Absolute Auto 1100 /uL (1100-4500); Lymphocytes Percent Auto 6.8 % (25-40); Mean Corpuscular HGB Conc 34.5 % (30-36); Mean Corpuscular Volume 101.4 fL (80-100); Monocytes Absolute Auto 1400 /uL (0-900); Monocytes Percent Auto 8.1 % (3-14); Neutrophils Absolute Auto 14300 /uL (1500-7000); Neutrophils Percent Auto 84.7 % (50-75); Platelet Count 421 X10^3/uL (150-400); Red Blood Cell Count 3.65 X10^6/uL (4.5-5.9); Red Cell Distribution Width 14.2 % (11.6-14.8); White Blood Cell Count 16.9 X10^3/uL (4.5-11.0)
[2019-10-25 16:38] LABS: INR 1.3 (0.9-1.3); Prothrombin Time 14.7 SECONDS (10.1-12.7)
[2019-10-25 16:40] LABS: BUN Creatinine Ratio 26.5 (6-22); Blood Urea Nitrogen 27 mg/dL (9-20); Estimated Glomerular Filt Rate > 60.0 mL/min (>60)
== END ==
PROVIDERS: PCP Internal Medicine; Referring Provider Surgery; Visit Provider Surgery
DX: R41.0 Disorientation, unspecified (principal); R18.8 Other ascites; I65.29 Occlusion and stenosis of unspecified carotid artery; K66.9 Disorder of peritoneum, unspecified; Z86.73 Personal history of transient ischemic attack (TIA), and cerebral infarction without residual deficits
CPT/HCPCS: 36415; 70470; 82565; 84520; 85025; 85610; Q9967